=== PATIENT | female | born 2000 | race Caucasian/White ===

== ENCOUNTER 2020-09-25 05:32 | Emergency (ER) | payer OTHER ==
[~2020-09-25] VITALS: Ht 152.4 cm; Wt 70.0 kg
[2020-09-25 05:46] VITALS: BP 127/73
--- NOTE | 2020-09-25 06:11 | PHYS DOC ---
Past Medical History Past Medical History: Anxiety Past Surgical History: No Surgical History Smoking Status: Never Smoker Alcohol Use: Occasionally General Adult EDM: Chief Complaint: ANKLE PROBLEM HPI: HPI: Patient is a 20 year old female presented to the ER today for evaluation of right ankle injury. Patient was running through the backyard in the mud, twisted her right ankle about 5 hours ago, having pain with walking. Patient denies any knee pain, no leg pain, no hip pain. Patient denies any other injury. Review of Systems: Review of Systems: Constitutional: Denies fever or chills. [] Eyes: Denies change in visual acuity. [] HENT: Denies nasal congestion or sore throat. [] Respiratory: Denies cough or shortness of breath. [] Cardiovascular: Denies chest pain or edema. [] GI: Denies abdominal pain, nausea, vomiting, bloody stools or diarrhea. [] : Denies dysuria. [] Musculoskeletal: Denies back pain , positive for right ankle pain. Integument: Denies rash. [] Neurologic: Denies headache, focal weakness or sensory changes. [] Endocrine: Denies polyuria or polydipsia. [] Lymphatic: Denies swollen glands. [] Psychiatric: Denies depression or anxiety. [] Heart Score: C/O Chest Pain: N/A Risk Factors: Risk Factors: DM, Current or recent (<one month) smoker, HTN, HLP, family history of CAD, obesity. Risk Scores: Score 0 - 3: 2.5% MACE over next 6 weeks - Discharge Home Score 4 - 6: 20.3% MACE over next 6 weeks - Admit for Clinical Observation Score 7 - 10: 72.7% MACE over next 6 weeks - Early Invasive Strategies Allergies: Allergies: Allergies Coded Allergies Type Severity Reaction Last Updated Verified fluoxetine Allergy Mild HIVES 09/25/20 Yes acetaminophen Adverse Reaction Mild NAUSEA/VOMITING 09/25/20 Yes Physical Exam: PE: Constitutional: Well developed, well nourished, no acute distress, non-toxic appearance. [] HENT: Normocephalic, atraumatic, bilateral external ears normal, oropharynx moist, no oral exudates, nose normal. [] Eyes: PERRLA, EOMI, conjunctiva normal, no discharge. [] Neck: Normal range of motion, no tenderness, supple, no stridor. [] Cardiovascular:Heart rate regular rhythm, no murmur [] Lungs & Thorax: Bilateral breath sounds clear to auscultation [] Abdomen: Bowel sounds normal, soft, no tenderness, no masses, no pulsatile masses. [] Skin: Warm, dry, no erythema, no rash. [] Back: No tenderness, no CVA tenderness. [] Extremities: Right ankle is tender to palpation with minimal swelling, no deformity, no tenderness along the leg, no swelling of right knee, no tenderness to palpation on right foot, no cyanosis, no clubbing, ROM intact, no edema. [] Neurologic: Alert and oriented X 3, normal motor function, normal sensory function, no focal deficits noted. [] Psychologic: Affect normal, judgement normal, mood normal. [] Current Patient Data: Vital Signs: Vital Signs Date Time Temp Pulse Resp B/P (MAP) Pulse Ox O2 Delivery O2 Flow Rate FiO2 09/25/20 05:46 98.1 16 16 127/73 (91) 99 Room Air 98.1 EKG: EKG: [] Radiology/Procedures: Radiology/Procedures: [][facility] [address] [place] [address] IMAGING REPORT Signed PATIENT: CASSIDY KANG ACCOUNT: [id number] : 2000 LOCATION: ER AGE: 20 SEX: F EXAM STATUS: PRE ER ORD. PHYSICIAN: TALITA CRESPO DO REASON: right ankle injured PROCEDURE: ANKLE RIGHT 3V EXAM: Right ankle, 3 views. HISTORY: Injury. COMPARISON: None. FINDINGS: 3 views of the right ankle are obtained. There is no fracture, dislocation or subluxation. The ankle mortise is intact. No osteochondral lesion is seen. There is soft tissue swelling. IMPRESSION: No acute osseous finding. Soft tissue swelling. Electronically signed by: Korina Aguayo MD (09/25/2020 6:26 AM) [facility] DICTATED and SIGNED BY: KORINA AGUAYO MD DATE: 09/25/20 [id number] 0 Course & Med Decision Making: Course & Med Decision Making Pertinent Labs and Imaging studies reviewed. (See chart for details) Patient is a 20-year-old female who presented to ER due to right ankle injury, x-ray did not show any fracture. Patient had right ankle sprain, Bonifacio wrap were applied to her right ankle, patient was discharged home in stable condition. Patient was advised to take ibuprofen or Tylenol as needed for pain control. Dragon Disclaimer: Dragon Disclaimer: This electronic medical record was generated, in whole or in part, using a voice recognition dictation system. Departure Departure Impression: Primary Impression: Right ankle sprain Disposition: HOME / SELF CARE / HOMELESS Condition: STABLE Referrals: VIVIAN SCOTT MD Please call this orthopedic doctor for outpatient follow up next week. Patient Instructions: Ankle Sprain, Acute, with Phase I Rehab-SportsMed Additional Instructions: Thank you for visiting our Emergency Department. We appreciate you trusting us with your care. If any additional problems come up don't hesitate to return to visit us. Please follow up with your primary care provider so they can plan additional care if needed and know about the problem that you had. If symptoms worsen come back to the Emergency Department. Any concerning symptoms that start such as chest pain, shortness of air, weakness or numbness on one side of the b mihaela, running high fevers or any other concerning symptoms return to the ER. TALITA CRESPO DO September 25, 2020 06:11
--- NOTE | 2020-09-25 06:28 | RAD ---
EXAM: Right ankle, 3 views. HISTORY: Injury. COMPARISON: None. FINDINGS: 3 views of the right ankle are obtained. There is no fracture, dislocation or subluxation. The ankle mortise is intact. No osteochondral lesion is seen. There is soft tissue swelling. IMPRESSION: No acute osseous finding. Soft tissue swelling. Electronically signed by: Shari Cullen MD (09/25/2020 6:26 AM) [facility]
== END 2020-09-25 07:11 | disposition home or self-care (01) ==
LOC: ER 05:32
DX: S93.401A Sprain of unspecified ligament of right ankle, initial encounter (principal); Z88.6 Allergy status to analgesic agent; Z88.8 Allergy status to other drugs, medicaments and biological substances; X50.9XXA Other and unspecified overexertion or strenuous movements or postures, initial encounter; Y93.89 Activity, other specified; Y92.89 Other specified places as the place of occurrence of the external cause; Y99.8 Other external cause status
CPT/HCPCS: 73610; 99283